=== PATIENT | female | born 1960 | race Caucasian/White ===

== ENCOUNTER 2024-04-27 11:14 | Emergency (ER) | payer OTHER ==
[2024-04-27] MEDS ORDERED: ONDANSETRON 4 MG/2 ML VIAL ONE (11:29)
[2024-04-27] MEDS ORDERED: MORPHINE 2 MG/ML SYR ONE (11:29)
[2024-04-27] MEDS ORDERED: KETOROLAC 30 MG/ML INJ ONE (11:29)
[2024-04-27] MEDS ORDERED: FAMOTIDINE 20 MG/2 ML VIAL IV ONE (11:29)
[2024-04-27] MEDS ORDERED: NA CHLORIDE 0.9% 1,000 ML ONE (11:30)
[2024-04-27 11:56] LABS: Sqamous Epithelial <5 /HPF (None Seen); Urine Bacteria None Seen /HPF (<20); Urine Bilirubin NEGATIVE (Negative); Urine Blood Negative (Negative); Urine Clarity Extremely Turbid (Clear); Urine Color Yellow (Yellow); Urine Culture Reflex Order NOT NEEDED; Urine Glucose NEGATIVE (Negative); Urine Ketones NEGATIVE (Negative); Urine Microscopic Reflex YN ORDER UMIC; Urine Nitrite NEGATIVE (Negative); Urine Protein NEGATIVE (Negative); Urine RBC <5 /HPF (None Seen); Urine Urobilinogen Normal (Normal); Urine WBC <5 /HPF (<5)
[2024-04-27 12:12] LABS: Absolute Basophils 0.1 K/uL (0-0.5); Absolute Eosinophils 0.1 K/uL (0-0.5); Absolute Lymphocytes (CBC) 1.3 K/uL (0.7-4.9); Absolute Monocytes 0.4 K/uL (0.1-1.3); Absolute Neutrophil 2.9 K/uL (1.8-8.0); Basophils % 1.2 % (0-1.3); Eosinophils % 1.4 % (0-4.4); Hemoglobin 13.9 g/dL (12.0-15.0); Lymphocytes % 27.7 % (15.3-44.8); MCH 30.3 pg (27.0-35.0); MCV 91.9 fL (80-100); MPV 8.9 fL (7.6-11.3); Monocytes % 8.4 % (3.3-12.3); Neutrophils % 61.3 % (41.7-73.7); Platelets 183 thou/uL (152-406); RBC Red Blood Cell Count 4.57 M/uL (3.86-4.86); Red Cell Distribution Width 13.4 % (12.1-15.2)
[2024-04-27 12:34] LABS: Albumin 3.6 g/dL (3.4-5.0); Albumin/Globulin Ratio 1.2 (1.1-1.8); Anion Gap 7.1 mEq/L (5.0-15.0); Bilirubin Total 0.5 mg/dL (0.2-1.0); Globulin 2.9 g/dL (2.3-3.5); Potassium 4.1 mEq/L (3.5-5.1); Protein, Total 6.5 g/dL (6.4-8.2)
[2024-04-27] MEDS ORDERED: dexAMETHasone 10 MG/ML VIAL ONE (12:40)
[2024-04-27] MEDS ORDERED: DIAZEPAM 5 MG TABLET ONE (12:41)
[2024-04-27] MEDS ORDERED: MORPHINE 4 MG/ML SYR ONE (12:41)
--- NOTE | 2024-04-27 13:16 | RAD REPORT ---
EXAM DESCRIPTION: CTAbdomen Pelvis W Contrast - 04/27/2024 1:02 pm CLINICAL HISTORY: ABD PAIN COMPARISON: No comparisons TECHNIQUE: CT of the abdomen and pelvis was performed. All CT scans are performed using dose optimization technique as appropriate and may include automated exposure control or mA/KV adjustment according to patient size. FINDINGS: Lower chest: No acute abnormality. Mild circumferential thickened distal esophagus. Liver: Too small to characterize liver lesions which are likely benign. Biliary: No biliary ductal dilatation. Stomach: No significant focal abnormality. Duodenum: No significant focal abnormality. Pancreas: Prominent pancreatic duct. No masses identified. Spleen: No significant abnormality. Adrenal: No suspicious lesions. Kidney/ureter: No hydronephrosis. No renal calculi. Extrarenal pelvises bilaterally. Retroperitoneum: No retroperitoneal adenopathy. Vascular: No aneurysm. Bowel: Moderate colonic stool.. No evidence appendicitis. Appendix not confidently identified but no secondary signs of acute appendicitis. Peritoneum: No ascites or free air. Bladder: Grossly unremarkable. Reproductive: No adnexal masses. Bones: Sclerotic focus in the left iliac bone with peripheral lucency has a nonaggressive appearance and is likely benign. Facet degenerative changes are present. No acute fracture. No clinically signif icant central spinal stenosis appreciated. Grade 1 anterolisthesis of L4 on L5. Other: n/a IMPRESSION: No acute intra-abdominal or pelvic finding. Incidental findings as noted above.
--- NOTE | 2024-04-27 13:28 | EDPHYS ---
Physician Documentation [facility] Name: Lizbet Stafford Age: 63 yrs Sex: Female : 1960 Arrival Date: 04/27/2024 Time: 11:14 Bed 8 Private MD: ED Physician Subhash Maki HPI: 04/27 13:21 This 63 yrs old Female presents to ER via Ambulatory with complaints of Back lauri Pain. 13:21 The patient presents with pain that is acute, and decreased range of motion, and an lauri injury. 13:21 The patient presents with abdominal pain right lower quadrant, in the left lower lauri quadrant, abdominal distention in the lower abdomen. Onset: The symptoms/episode began/occurred 3 day(s) ago. The symptoms are located in the low back, lumbar area, left low back and right low back. Onset: The symptoms/episode began/occurred 3 day(s) ago. The pain does not radiate. Associated signs and symptoms: The patient has no apparent associated signs or symptoms. Modifying factors: The patient symptoms are alleviated by nothing, the patient symptoms are aggravated by any movement. Severity of symptoms: At their worst the symptoms were moderate, in the emergency department the symptoms are unchanged. The symptoms do not radiate. 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 - Infectious Disease History:: Denies. - Social history:: Smoking status: Patient denies any tobacco usage or history of. - Family history:: not pertinent. ROS: 13:21 Constitutional: Negative for fever, chills, and weight loss, Eyes: Negative for injury, lauri pain, redness, and discharge, ENT: Negative for injury, pain, and discharge, Neck: Negative for injury, pain, and swelling, Cardiovascular: Negative for chest pain, palpitations, and edema, Respiratory: Negative for shortness of breath, cough, wheezing, and pleuritic chest pain, : Negative for injury, bleeding, discharge, and swelling, MS/Extremity: Negative for injury and deformity, Skin: Negative for injury, rash, and discoloration, Neuro: Negative for headache, weakness, numbness, tingling, and seizure, Psych: Negative for depression, anxiety, suicide ideation, homicidal ideation, and hallucinations, Allergy/Immunology: Negative for hives, rash, and allergies, Endocrine: Negative for neck swelling, polydipsia, polyuria, polyphagia, and marked weight changes, Hematologic/Lymphatic: Negative for swollen nodes, abnormal bleeding, and unusual bruising, 13:21 Abdomen/GI: Positive for abdominal pain, abdominal cramps, of the posterior aspect of right lateral abdomen, posterior aspect of left lateral abdomen, right lower quadrant and left lower quadrant, 13:21 Back: Positive for injury or acute deformity, decreased range of motion, of the lumbar area, left low back and right low back, Exam: 13:21 Constitutional: This is a well developed, well nourished patient who is awake, alert, lauri and in no acute distress. Head/Face: Normocephalic, atraumatic. Eyes: Pupils equal round and reactive to light, extra-ocular motions intact. Lids and lashes normal. Conjunctiva and sclera are non-icteric and not injected. Cornea within normal limits. Periorbital areas with no swelling, redness, or edema. ENT: Nares patent. No nasal discharge, no septal abnormalities noted. Tympanic membranes are normal and external auditory canals are clear. Oropharynx with no redness, swelling, or masses, exudates, or evidence of obstruction, uvula midline. Mucous membranes moist. Neck: Trachea midline, no thyromegaly or masses palpated, and no cervical lymphadenopathy. Supple, full range of motion without nuchal rigidity, or vertebral point tenderness. No Meningismus. Chest/axilla: Normal chest wall appearance and motion. Nontender with no deformity. No lesions are appreciated. Cardiovascular: Regular rate and rhythm with a normal S1 and S2. No gallops, murmurs, or rubs. Normal PMI, no JVD. No pulse deficits. Respiratory: Lungs have equal breath sounds bilaterally, clear to auscultation and percussion. No rales, rhonchi or wheezes noted. No increased work of breathing, no retractions or nasal flaring. Abdomen/GI: Soft, non-tender, with normal bowel sounds. No distension or tympany. No guarding or rebound. No evidence of tenderness throughout. Female : Normal external genitalia. Skin: Warm, dry with normal turgor. Normal color with no rashes, no lesions, and no evidence of cellulitis. MS/ Extremity: Pulses equal, no cyanosis. Neurovascular intact. Full, normal range of motion. Neuro: Awake and alert, GCS 15, oriented to person, place, time, and situation. Cranial nerves II-XII grossly intact. Motor strength 5/5 in all extremities. Sensory grossly intact. Cerebellar exam normal. Normal gait. Psych: Awake, alert, with orientation to person, place and time. Behavior, mood, and affect are within normal limits. 13:21 Back: pain, that is moderate, of the lumbar area, left low back and right low back, ROM is normal, normal spinal alignment noted, CVA tenderness, is absent, vertebral tenderness, is not appreciated, muscle spasm, is appreciated in the left low back, left mid back, right mid back and right low back, Vital Signs: 11:38 BP 139 / 79; Pulse 60; Resp 16; Temp 98.6; Pulse Ox 99% on R/A; Weight 58.97 kg; Height ll1 5 ft. 4 in. ; Pain 10/10; 13:58 BP 128 / 78; Pulse 74; Resp 18; Pulse Ox 100% on R/A; mb9 11:38 Body Mass Index 22.31 (58.97 kg, 162.56 cm) ll1 11:38 Pain Scale: Adult ll1 MDM: 11:16 Patient medically screened. lauri 13:24 Differential diagnosis: Abdominal Aortic Aneurysm chronic back pain, Epidural or lauri Perispinal Abcess Epidural or Perispinal Bleed Fatigue Fracture Hydronephrosis Joint Injury Neoplasm Osteoarthritis Osteoporosis Perforated Ulcer Pyelonephritis ruptured disc, Scoliosis sickle cell crisis, spinal injury, Ureterolithiasis bowel obstruction, cholecystitis, Cholelithiasis, diverticulitis, gastritis, sympomatic leaking abdominal aortic aneurysm, Mesenteric ischemia or infarction, non-specific abd pain, pancreatitis, Pyelonephritis, Ureterolithiasis, urinary tract infection. Data reviewed: vital signs, nurses notes, lab test result(s), radiologic studies, CT scan. Consideration of Admission/Observation Escalation of care including admission/observation considered. I considered the following discharge prescriptions or medication management in the emergency department Medications were administered in the Emergency Department. See MAR. Independent interpretation of the following test(s) in the Emergency Department CT Scan: My interpretation is ct abd/pelvis. Test considered but Not performed: MRI: no mri lumbar. Historians other than the Patient: Spouse/Significant Other: dr mary alice corona. Care significantly affected by the following chronic conditions: mvp. Counseling: I had a detailed discussion with the patient and/or guardian regarding the historical points, exam findings, and any diagnostic results supporting the discharge/admit diagnosis, lab results, radiology results, the need for outpatient follow up, for definitive care, a family practitioner, a neurologist, a orthopedic surgeon. 04/27 11:20 Order name: CBC with Diff; Complete Time: 12:37 [facility] 04/27 11:20 Order name: CMP; Complete Time: 12:37 [facility] 04/27 11:20 Order name: Lipase; Complete Time: 12:37 [facility] 04/27 11:20 Order name: Urinalysis w/ reflexes; Complete Time: 12:37 [facility] 04/27 11:20 Order name: CT Abd/Pelvis - IV Contrast Only: attn to lumbar spine as well please; [facility] Complete Time: 13:19 04/27 11:20 Order name: IV Saline Lock; Complete Time: 11:57 [facility] 04/27 11:20 Order name: Labs collected and sent; Complete Time: 11:57 [facility] Administered Medications: 11:57 Drug: NS 0.9% IV 1000 ml IV at 1 bolus Per protocol; 1000 mL bolus Route: IV; Rate: 1 ko1 bolus; Site: right antecubital; 11:57 Drug: Famotidine IVP 20 mg IVP once; dilute with 10 mL 0.9% NaCl; give over 2 minutes ko1 Route: IVP; Site: right antecubital; 11:57 Drug: TORadol - Ketorolac IVP 15 mg IVP once Route: IVP; Site: right antecubital; ko1 11:57 Drug: Ondansetron IVP 4 mg IVP once; over 2 minutes Route: IVP; Site: right antecubital;ko1 11:57 Drug: morphine IVP or IV 2 mg IVP once over 4 mins Route: IVP; Infused Over: 4 mins; ko1 Site: right antecubital; 12:39 Not Given (Duplicate Order): morphineor iv 2 mg IVP once over 4 mins mb9 12:49 Drug: Decadron - Dexamethasone IVP 10 mg IVP once Route: IVP; Site: right antecubital; mb9 12:49 Drug: Diazepam PO 10 mg PO once Route: PO; mb9 12:50 Drug: morphine IVP or IV 4 mg IVP once over 4 mins Route: IVP; Infused Over: 4 mins; mb9 Site: right antecubital; Disposition Summary: 04/27/24 13:28 Discharge Ordered Notes: Location: Home lauri Problem: new lauri Symptoms: have improved lauri Condition: Stable lauri Diagnosis - Abdominal pain, unspecified lauri - Low back pain lauri - Strain of muscle, fascia and tendon of abdomen, lower back and pelvis lauri - Constipation lauri Followup: lauri - With: Private Physician - When: 2 - 3 days - Reason: Recheck today's complaints, Continuance of care, Re-evaluation by your physician Followup: lauri - With: Jermain Sahu MD - When: 2 - 3 days - Reason: Recheck today's complaints, Re-evaluation by your physician Discharge Instructions: - Discharge Summary Sheet lauri - Abdominal Pain, Adult lauri - Acute Back Pain, Adult lauri - Chronic Back Pain lauri - Constipation, Adult lauri - Musculoskeletal Pain lauri - Constipation, Adult, [id number] lauri - Abdominal Pain, Adult, [id number] lauri - Back Exercises, [id number] [facility] Forms: - Medication Reconciliation Form [facility] - Antibiotic Education lauri - Prescription Opioid Use lauri - Patient Portal Instructions [facility] - Leadership Thank You Letter [facility] Prescriptions: - acetaminophen-codeine 300-30 mg Oral tablet - take 2 tablet ORAL route every 6 hours as needed for pain; 20 tablet; Refills: [facility] 0, Product Selection Permitted - dexamethasone 4 mg Oral tablet - take 1 tablet ORAL route daily; 5 tablet; Refills: 0, Product Selection lauri Permitted - diclofenac sodium 50 mg Oral tablet, delayed release (enteric coated) - take 1 tablet ORAL route 3 times per day; 30 tablet; Refills: 0, Product [facility] Selection Permitted - Miralax 17 gram Oral powder in packet - take 1 packet ORAL route 2 times per day; 14 packet; Refills: 0, Product [facility] Selection Permitted - Valium 5 mg Oral Tablet - take 1 tablet ORAL route every 8 hours As needed; 20 tablet; Refills: 0, [facility] Product Selection Permitted Signatures: Dispatcher [employer] EDSubhash Og MD MD cha Lewis, Lynsay RN RN ll1 Cornelia Ba, MARIA A RN ko1 Gloria, Emani Guillermo, RN RN mb9
--- NOTE | 2024-04-27 13:28 | ER ---
Nurse's Notes [facility] Name: Lizbet Stafford Age: 63 yrs Sex: Female : 1960 Arrival Date: 04/27/2024 Time: 11:14 Bed 8 Private MD: Diagnosis: Abdominal pain, unspecified;Low back pain;Strain of muscle, fascia and tendon of abdomen, lower back and pelvis;Constipation Presentation: 04/27 11:38 Chief complaint: Patient states: Low back pain since Saturday. Pain wraps around both ll1 sides to lower abdomen at times. No known fever. Coronavirus screen: Client denies travel out of the [place] in the last 14 days. At this time, the client does not indicate any symptoms associated with coronavirus-19. Ebola Screen: Patient denies travel to an Ebola-affected area in the 21 days before illness onset. Initial Sepsis Screen: Does the patient meet any 2 criteria? No. Patient's initial sepsis screen is negative. Does the patient have a suspected source of infection? No. Patient's initial sepsis screen is negative. Risk Assessment: Do you want to hurt yourself or someone else? Patient reports no desire to harm self or others. Onset of symptoms was April 22, 2024. 11:38 Method Of Arrival: Ambulatory ll1 11:38 Acuity: MOISE 3 ll1 Triage Assessment: 11:41 General: Appears uncomfortable, Behavior is calm, cooperative, appropriate for age. ll1 Pain: Complains of pain in back Pain radiates to lower abdomen Pain currently is 10 out of 10 on a pain scale. GI: Reports lower abdominal pain. Musculoskeletal: Reports low back pain. 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 - Infectious Disease History:: Denies. - Social history:: Smoking status: Patient denies any tobacco usage or history of. - Family history:: not pertinent. Assessment: 13:58 Reassessment: No changes from previously documented assessment. Patient and/or family mb9 updated on plan of care and expected duration. Pain level reassessed. Patient is alert, oriented x 3, equal unlabored respirations, skin warm/dry/pink. Vital Signs: 11:38 BP 139 / 79; Pulse 60; Resp 16; Temp 98.6; Pulse Ox 99% on R/A; Weight 58.97 kg; Height ll1 5 ft. 4 in. ; Pain 10/10; 13:58 BP 128 / 78; Pulse 74; Resp 18; Pulse Ox 100% on R/A; mb9 11:38 Body Mass Index 22.31 (58.97 kg, 162.56 cm) ll1 11:38 Pain Scale: Adult [facility] ED Course: 11:16 Patient arrived in ED. ll1 11:16 Subhash Maki MD is Attending Physician. lauri 11:16 Arm band placed on Patient placed in an exam room, on a stretcher. ll1 11:40 Triage completed. ll1 11:55 Initial lab(s) drawn, by in, sent to lab. Urine collected: clean catch specimen, joey ko1 colored. Inserted saline lock: 22 gauge in right antecubital area, using aseptic technique. Blood collected. 11:56 Cornelia Ba, MARIA A is Primary Nurse. ko1 11:57 CBC with Diff Sent. ko1 11:57 CMP Sent. ko1 11:58 Lipase Sent. ko1 13:03 CT Abd/Pelvis - IV Contrast Only: attn to lumbar spine as well please In Process EDMS Unspecified. 13:27 Jermain Sahu MD is Referral Physician. [facility] 13:58 No provider procedures requiring assistance completed. IV discontinued, intact, mb9 bleeding controlled, No redness/swelling at site. Pressure dressing applied. Administered Medications: 11:57 Drug: NS 0.9% IV 1000 ml IV at 1 bolus Per protocol; 1000 mL bolus Route: IV; Rate: 1 ko1 bolus; Site: right antecubital; 11:57 Drug: Famotidine IVP 20 mg IVP once; dilute with 10 mL 0.9% NaCl; give over 2 minutes ko1 Route: IVP; Site: right antecubital; 11:57 Drug: TORadol - Ketorolac IVP 15 mg IVP once Route: IVP; Site: right antecubital; ko1 11:57 Drug: Ondansetron IVP 4 mg IVP once; over 2 minutes Route: IVP; Site: right antecubital;ko1 11:57 Drug: morphine IVP or IV 2 mg IVP once over 4 mins Route: IVP; Infused Over: 4 mins; ko1 Site: right antecubital; 12:39 Not Given (Duplicate Order): morphineor iv 2 mg IVP once over 4 mins mb9 12:49 Drug: Decadron - Dexamethasone IVP 10 mg IVP once Route: IVP; Site: right antecubital; mb9 12:49 Drug: Diazepam PO 10 mg PO once Route: PO; mb9 12:50 Drug: morphine IVP or IV 4 mg IVP once over 4 mins Route: IVP; Infused Over: 4 mins; mb9 Site: right antecubital; Outcome: 13:28 Discharge ordered by MD. carreon 13:58 Discharged to home ambulatory, with family, toribio 13:58 Condition: stable 13:58 Discharge instructions given to patient, Instructed on discharge instructions, follow up and referral plans. Demonstrated understanding of instructions, follow-up care, medications, Prescriptions given X 5 13:59 Patient left the ED. mb9 Signatures: Dispatcher [employer] EDMS Subhash Maki MD MD cha Lewis, Lynsay, RN RN ll1 Cornelia Ba RN RN ko1 Emani Castro RN RN mb9
[2024-04-27 14:16] VITALS: BP 128/78; TEMP 98.6; O2SAT 100
== END 2024-04-27 13:59 | disposition home or self-care (01) ==
LOC: ER 11:14
DX: S39.012A Strain of muscle, fascia and tendon of lower back, initial encounter (principal); K59.00 Constipation, unspecified; R10.31 Right lower quadrant pain
CPT/HCPCS: 85025; 81001; 36415; 83690; 80053; 74177; 96375; 96374; 99284; Q9967; J1100; J2270; J2405; J7030